=== PATIENT | male | born 1990 | race Caucasian/White ===

== ENCOUNTER 2018-10-16 23:42 | Emergency (ER) | payer OTHER, SELFPAY ==
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
--- OUTSIDE RECORDS SUMMARY | 2018-10-16 23:47 | XMS REPORT | CCD ---
:[address] [facility] [place], [place] Care Team Providers Name Role Phone VillasenorRonald Consulting Provider Allergies, Adverse Reactions, Alerts Substance Reaction Status ibuprofen Active Medications Medication Instructions Start Date End Date Status Omnipaque 240 50 mL, Route: PO, ONCE, 05/10/2012 05/10/2012 Completed Start date: 05/10/12 4:31:00, Stop date: 05/10/12 4:31:00 Lactated Ringers 1,000 mL, Rate: 1,000 05/10/2012 05/10/2012 Completed Injection IV 1,000 mL ml/hr, Infuse over: 1 hr, Route: IV, Dosing Weight 61.364 kg, Total Volume: 1,000, Bolus infusion, Priority: STAT, Start date: 05/10/12 5:36:00, Duration: 1 doses or times, Stop date: 05/10/12 6:35:00 tramadol 50 mg oral 50 mg, PO, Q4-6H, PRN, 20 05/10/2012 05/14/2012 Ordered tablet tab, Pain, Substitution Allowed Lactated Ringers (Bolus) 1,000 mL, Rate: 1,000 05/10/2012 05/10/2012 Completed IV 1,000 mL ml/hr, Infuse over: 1 hr, Route: IV, Dosing Weight 61.364 kg, Total Volume: 1,000, Bolus Dose, Priority: STAT, Start date: 05/10/12 5:11:00, Duration: 1 doses or times, Stop date: 05/10/12 6:10:00 Lactated Ringers (Bolus) 1,000 mL, Rate: 1,000 05/10/2012 05/10/2012 Completed IV 1,000 mL ml/hr, Infuse over: 1 hr, Route: IV, Dosing Weight 61.36 kg, Total Volume: 1,000, Bolus Dose, Priority: STAT, Start date: 05/10/12 4:01:00, Duration: 1 doses or times, Stop date: 05/10/12 5:00:00 ondansetron 4 mg, 2 mL, Route: IVP, 05/10/2012 05/10/2012 Completed Drug form: INJ, ONCE, Priority: STAT, Start date: 05/10/12 4:01:00, Stop date: 05/10/12 4:01:00 tetanus-diphtheria 0.5 ml, Route: IM, Drug 05/10/2012 05/10/2012 Completed toxoids Form: INJ, ONCE, Start date: 05/10/12 4:01:00, Stop date: 05/10/12 4:01:00 Saline Flush 0.9% 5 ml, Route: IVP, Drug 05/10/2012 05/10/2012 Discontinued Form: INJ, PRN, PRN Line Flush, Start date: 05/10/12 4:01:00, Duration: 30 day, Stop date: 06/09/12 4:00:00 Immunizations Vaccine Date Status tetanus-diphtheria toxoids 05/10/2012 Auth (Verified) Vital Signs Most recent to oldest [Reference Range]: 1 Height 175.26 cm (05/10/2012 03:18:00) Weight 61.364 kg (05/10/2012 03:18:00) Results URINALYSIS Most recent to oldest [Reference Range]: 1 2 UA Turbidity [Clear] Clear (05/10/2012 06:33:00) UA Color [Yellow] Light Yellow *NA* (05/10/2012 06:33:00) UA pH [5.0-8.0] 5.0 (05/10/2012 06:33:00) UA Spec Grav [<=1.030] 1.043 *HI* (05/10/2012 06:33:00) UA Glucose [Negative mg/dL] Negative mg/dL *NA* (05/10/2012 06:33:00) UA Blood [Negative] Negative (05/10/2012 06:33:00) UA Ketones [Negative mg/dL] Trace mg/dL *ABN* (05/10/2012 06:33:00) UA Protein [Negative mg/dL] Negative mg/dL (05/10/2012 06:33:00) UA Urobilinogen [0.1-1.0 mg/dL] <=1.0 mg/dL *NA* (05/10/2012 06:33:00) UA Bili [Negative] Negative *NA* (05/10/2012 06:33:00) UA Leuk Est [Negative] Negative (05/10/2012 06:33:00) UA Nitrite [Negative] Negative (05/10/2012 06:33:00) UA WBC [0-5 /HPF] <1 /HPF (05/10/2012 06:33:00) UA RBC [0-2 /HPF] <1 /HPF (05/10/2012 06:33:00) UA Sq Epi None Seen *NA* (05/10/2012 06:33:00) BLOOD BANK RESULTS Most recent to oldest [Reference Range]: 1 2 ABO/Rh O NEG *Unknown* (05/10/2012 04:15:00) Antibody Scrn Negative (05/10/2012 04:15:00) CHEMISTRY Most recent to oldest [Reference Range]: 1 2 Sodium Lvl [135-145 mEq/L] 141 mEq/L (05/10/2012 04:13:00) Potassium Lvl [3.5-5.1 mEq/L] 3.7 mEq/L (05/10/2012 04:13:00) Chloride Lvl [95-109 mEq/L] 108 mEq/L (05/10/2012 04:13:00) CO2 [24-32 mEq/L] 24 mEq/L (05/10/2012 04:13:00) AGAP [10.0-20.0 mEq/L] 12.7 mEq/L (05/10/2012 04:13:00) Creatinine Lvl [0.5-1.4 mg/dL] 0.9 mg/dL (05/10/2012 04:13:00) BUN [7-22 mg/dL] 6 mg/dL *LOW* (05/10/2012 04:13:00) B/C Ratio [6-25] 7 (05/10/2012 04:13:00) Glucose Lvl [70-99 mg/dL] 105 mg/dL 1 *HI* (05/10/2012 04:13:00) Total Protein [6.4-8.4 g/dL] 9.0 g/dL *HI* (05/10/2012 04:13:00) Albumin Lvl [3.5-5.0 g/dL] 5.0 g/dL (05/10/2012 04:13:00) Globulin [2.0-4.0 g/dL] 4.0 g/dL (05/10/2012 04:13:00) A/G Ratio [0.7-1.6] 1.3 (05/10/2012 04:13:00) Calcium Lvl [8.5-10.5 mg/dL] 9.5 mg/dL (05/10/2012 04:13:00) ALT [0-65 U/L] 37 U/L (05/10/2012 04:13:00) AST [0-37 U/L] 50 U/L *HI* (05/10/2012 04:13:00) Alk Phos [39-136 U/L] 113 U/L (05/10/2012 04:13:00) Bili Total [0.2-1.3 mg/dL] 0.4 mg/dL (05/10/2012 04:13:00) Amylase Lvl [25-115 U/L] 84 U/L (05/10/2012 04:13:00) U Amph Scr [Negative] Negative *NA* (05/10/2012 06:33:00) U Ines Scr [Negative] Negative *NA* (05/10/2012 06:33:00) U Benzodia Scr [Negative] Negative *NA* (05/10/2012 06:33:00) U Cocaine Scr [Negative] Negative *NA* (05/10/2012 06:33:00) U Opiate Scr [Negative] Negative *NA* (05/10/2012 06:33:00) U Phencyc Scr [Negative] Negative *NA* (05/10/2012 06:33:00) U Cannab Scr [Negative] Positive *ABN* (05/10/2012 06:33:00) UDS Note See Note 2 (05/10/2012 06:33:00) Etoh (%) .167 % 3 *NA* (05/10/2012 04:13:00) Ethanol Lvl 167 mg/dL 4 *NA* (05/10/2012 04:13:00) 1Interpretive Data: Adult reference range values reflect the clinical guidelinesof the [place] [employer].2Interpretive Data: Drugs reported as positive have not been confirmed by a second method and should be used for medical purposes only. To orderconfirmation, contact laboratory. note : Below are cut-off concentrations for all urine drugs of abuse performed in the laboratory. Some drugs listed in the table may not be included in this panel.Description Cut-off concentration Amphetamine 1000 ng/mLBarbiturates 200 ng/mLBenzodiazepines 300 ng/mLCocaine metabolites 300 ng /mLOpiates 300 ng/mLPhencyclidine 25 ng/ mLPropoxyphene 300 ng/mLMarijuana metabolites 50 ng/ mLMethadone 300 ng/mLUrine alcohol 20 mg/ [id number] Data: Negative Range: <0.003%Toxic Range: >0.25% 4Interpretive Data: Negative Range: <3 mg/dLToxic Range: >250 mg/ dLHEMATOLOGY Most recent to oldest [Reference 1 2 Range]: WBC [3.7-10.4 K/CMM] 21.3 K/CMM 34.9 K/CMM *HI* *HI* (05/10/2012 08:05:00) (05/10/2012 04:13:00) RBC [4.70-6.10 M/CMM] 4.70 M/CMM 5.56 M/CMM (05/10/2012 08:05:00) (05/10/2012 04:13:00) Hgb [14.0-18.0 g/dL] 15.2 g/dL 17.7 g/dL (05/10/2012 08:05:00) (05/10/2012 04:13:00) Hct [42.0-54.0 %] 42.9 % 51.3 % (05/10/2012 08:05:00) (05/10/2012 04:13:00) MCV [80.0-94.0 fL] 91.3 fL 92.1 fL (05/10/2012 08:05:00) (05/10/2012 04:13:00) MCH [27.0-31.0 pg] 32.4 pg 31.8 pg *HI* *HI* (05/10/2012 08:05:00) (05/10/2012 04:13:00) MCHC [32.0-36.0 g/dL] 35.5 g/dL 34.6 g/dL (05/10/2012 08:05:00) (05/10/2012 04:13:00) RDW [11.5-14.5 %] 12.9 % 13.0 % (05/10/2012 08:05:00) (05/10/2012 04:13:00) Platelet [133-450 K/CMM] 273 K/CMM 321 K/CMM (05/10/2012 08:05:00) (05/10/2012 04:13:00) MPV [7.4-10.4 fL] 9.4 fL 9.9 fL (05/10/2012 08:05:00) (05/10/2012 04:13:00) Segs [45.0-75.0 %] 82.8 % 87.2 % *HI* *HI* (05/10/2012 08:05:00) (05/10/2012 04:13:00) Lymphocytes [20.0-40.0 %] 10.4 % 7.4 % *LOW* *LOW* (05/10/2012 08:05:00) (05/10/2012 04:13:00) Monocytes [2.0-12.0 %] 6.4 % 5.1 % (05/10/2012 08:05:00) (05/10/2012 04:13:00) Eosinophils [0.0-4.0 %] 0.1 % 0.1 % (05/10/2012 08:05:00) (05/10/2012 04:13:00) Basophils [0.0-1.0 %] 0.3 % 0.2 % (05/10/2012 08:05:00) (05/10/2012 04:13:00) Segs-Bands # [1.5-8.1 K/CMM] 17.6 K/CMM 30.4 K/CMM *HI* *HI* (05/10/2012 08:05:00) (05/10/2012 04:13:00) Lymphocytes # [1.0-5.5 K/CMM] 2.2 K/CMM 2.6 K/CMM (05/10/2012 08:05:00) (05/10/2012 04:13:00) Monocytes # [0.0-0.8 K/CMM] 1.4 K/CMM 1.8 K/CMM *HI* *HI* (05/10/2012 08:05:00) (05/10/2012 04:13:00) Eosinophils # [0.0-0.5 K/CMM] 0.0 K/CMM 0.0 K/CMM (05/10/2012 08:05:00) (05/10/2012 04:13:00) Basophils # [0.0-0.2 K/CMM] 0.1 K/CMM 0.1 K/CMM (05/10/2012 08:05:00) (05/10/2012 04:13:00) Plt Morph Normal See Note (05/10/2012 08:05:00) (05/10/2012 04:13:00) Giant Plt [None Seen] Slight *ABN* (05/10/2012 04:13:00) Large Plt [None Seen] Slight *ABN* (05/10/2012 04:13:00) PT [12.0-14.7 seconds] 13.0 seconds (05/10/2012 04:13:00) INR [0.85-1.17] 0.98 5 (05/10/2012 04:13:00) PTT [22.9-35.8 seconds] 29.5 seconds 6 (05/10/2012 04:13:00) 5Interpretive Data: RECOMMENDED RANGES FOR PROTIME INR: 2.0-3.0 for most medical and surgical thromboembolic states. 2.5-3.5 for artificial heart valves and recurrent embolism.INR SHOULD BE USED ONLY FOR PATIENTS ON STABLE ANTICOAGULANT THERAPY.6Interpretive Data: Heparin Therapeutic Range: 57 - 92 Seconds
--- NOTE | 2018-10-17 00:02 | EDPHYS ---
Physician Documentation [facility] Name: Jagdish Avila Age: 27 yrs Sex: Male : 1990 Arrival Date: 10/16/2018 Time: 23:43 Bed 20 Private MD: ED Physician Rick Solorio - Immunization history:: Adult Immunizations up to date. - Social history:: Smoking status: Patient uses tobacco products, smokes one-half pack cigarettes per day. - Ebola Screening: : No symptoms or risks identified at this time. Vital Signs: 10/16 23:50 BP 138 / 92; Pulse 87; Resp 16; Temp 97.2; Pulse Ox 98% on R/A; Weight 83.91 kg; Height la1 5 ft. 10 in. (177.80 cm); 23:50 Body Mass Index 26.54 (83.91 kg, 177.80 cm) la1 MDM: 23:47 Patient medically screened. pm1 10/17 00:00 Data reviewed: vital signs. Data interpreted: Pulse oximetry: on room air is 98 %. pm1 Interpretation: normal. 00:00 ED course: No patient present in room. Patient left before being seen by me. Informed pm1 by nurse that patient wanted to go home and left the ER. 10/16 23:49 Order name: EKG - Nurse/Tech pm1 10/16 23:49 Order name: IV Saline Lock pm1 10/16 23:49 Order name: Labs collected and sent pm1 10/16 23:49 Order name: Urine Dipstick-Ancillary (obtain specimen) pm1 Administered Medications: No medications were administered Disposition: 00:02 Chart complete. pm1 Disposition: 10/17/18 00:02 Patient left the facility before being seen by provider. Preliminary diagnosis is Person with feared health complaint in whom no diagnosis is made. - Patient left due to (see nurse's notes). - Condition is Undetermined. - Problem is new. - Symptoms are unchanged. Addendum: 10/19/2018 04:05 Co-signature as Attending Physician, Rick Solorio MD. g s Signatures: Dispatcher [employer] EDMS Zay Green RN RN la1 Jose Molina, MARGARINE MAKER MARGARINE MAKER pm1 Rick Solorio MD MD Corrections: (The following items were deleted from the chart) 10/17 00:02 00:02 10/17/2018 00:02 Patient left the facility before being seen by provider. la1 Preliminary diagnosis is Person with feared health complaint in whom no diagnosis is made. Reason stated they are leaving due to (see nurse's notes). Condition is Undetermined. Problem is new. Symptoms are unchanged. pm1
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
== END 2018-10-17 00:02 | disposition left against medical advice (07) ==
LOC: ER 23:42
DX: Z53.21 Procedure and treatment not carried out due to patient leaving prior to being seen by health care provider (principal)
CPT/HCPCS: 99282